=== PATIENT | male | born 1985 | race Caucasian/White ===

== ENCOUNTER 2022-11-13 08:16 | Emergency (ER) | payer OTHER, SELFPAY ==
[2022-11-13 08:28] VITALS: BP 129/73; PULSE 80; RESP 18; TEMP 36; O2SAT 100
--- NOTE | 2022-11-13 08:37 | ED.URI ---
HPI - URI/Sore Throat General Chief Complaint: Upper Respiratory Infection Stated Complaint: Cough/Fever Source: patient and RN notes reviewed History of Present Illness HPI Narrative: 37 yo M presents to urgent care with complaints of cough, fevers, and chills x 2 days. Pt reports some diarrhea and JARA. States his throat is starting to get itchy. Denies any vomiting, ear pain, chest pain, or SOB. Pt has been taking Motrin and Tylenol at home. Related Data Home Medications Medication Instructions Recorded Confirmed fluoxetine 20 mg capsule 20 mg PO DAILY 11/13/22 11/13/22 Allergies Allergy/AdvReac Type Severity Reaction Status Date / Time HYBISCUS Allergy Swelling Uncoded 11/13/22 08:32 Review of Systems Review of Systems: Pertinent positives and pertinent negatives per HPI. PMFSH Comments At the time of my signature, I reviewed and agree with the nursing past medical, surgical, social, and family history. There is no relevant family history pertinent to the patient complaint. Exam Narrative: GENERAL: This is a well-nourished, well-developed patient, in no apparent distress. HEAD: normocephalic, atraumatic. EYES: Sclera clear/white. Vision is grossly intact. EARS: External ears normal, auditory canals clear and without drainage. Hearing grossly intact. NOSE: External nose normal with no obvious nasal discharge, nares without redness, no rhinorrhea. THROAT: Mucous membranes moist, posterior pharynx clear. NECK: Neck supple, non-tender without lymphadenopathy, masses or thyromegaly. CARDIOVASCULAR: Regular rate and rhythm without murmurs, gallops, or rubs. RESPIRATORY: Clear to auscultation. Breath sounds equal bilaterally. No wheezes, rales, or rhonchi. frequently coughing in clinic. SKIN: warm, intact with no suspicious lesions or rash, good texture and turgor. NEURO: awake, alert, and oriented to person, place and time. There were no obvious focal neurologic abnormalities. Course Course Level of Care: Express Care Visit Vital Signs Vital signs: Vital Signs Temperature 96.8 F L 11/13/22 08:28 Pulse Rate 80 11/13/22 08:28 Respiratory Rate 18 11/13/22 08:28 Blood Pressure 129/73 11/13/22 08:28 Pulse Oximetry 100 11/13/22 08:28 Oxygen Delivery Room Air 11/13/22 08:28 Temperature 96.8 F L 11/13/22 08:28 Pulse Rate 80 11/13/22 08:28 Respiratory Rate 18 11/13/22 08:28 Blood Pressure 129/73 11/13/22 08:28 Pulse Oximetry 100 11/13/22 08:28 Oxygen Delivery Room Air 11/13/22 08:28 Reviewed MDM - URI/Sore Throat MDM Narrative Medical decision making narrative: Viral illness may last between 7-21 days; antibiotics do not cure viral illness and are NOT recommended at this time. Also, recommend symptomatic treatment includes: rest, fluids, and increase humidity of the air at home. Recommend Acetaminophen as directed on the bottle to reduce fever, pain, headache. Please schedule a follow-up visit with your personal physician for further evaluation and treatment within 3-5days. If your symptoms persist, change or worsen significantly before you can contact your personal physician then please, without delay, go to the emergency department for further evaluation. Stay hydrated. Differential Diagnosis Differential diagnosis: Likely upper respiratory infection, sinusitis and viral infection Lab Data Attestation: I reviewed the patient's lab results. Critical Care Time Critical Care Time Critical Care Time: No Discharge Plan Discharge Clinical Impression: Viral infection Patient Disposition: Home, Self-Care Condition: Stable Instructions: Viral Syndrome (ED) Additional Instructions: Viral illness may last between 7-21 days; antibiotics do not cure viral illness and are NOT recommended at this time. Also, recommend symptomatic treatment includes: rest, fluids, and increase humidity of the air at home. Recommend Acetaminophen as directed on the bottle
== END 2022-11-13 08:53 | disposition home or self-care (01) ==
PROVIDERS: Emergency Provider Nurse Practitioner Family
DX: B34.9 Viral infection, unspecified (principal); Z79.899 Other long term (current) drug therapy
CPT/HCPCS: 99211; G0463

== ENCOUNTER 2022-12-25 15:38 | Emergency (ER) | payer OTHER, SELFPAY ==
--- NOTE | 2022-12-25 15:55 | ED.LOWEXIN ---
HPI - Extremity Injury (Lower) General Stated Complaint: Vomiting/Headache/Fever Related Data Home Medications Medication Instructions Recorded Confirmed fluoxetine 20 mg capsule 20 mg PO DAILY 11/13/22 11/13/22 Allergies Allergy/AdvReac Type Severity Reaction Status Date / Time HYBISCUS Allergy Swelling Uncoded 11/13/22 08:32 Discharge Plan Discharge Prescriptions: No Action fluoxetine 20 mg capsule 20 mg PO DAILY Follow-up/Referrals: UNKNOWN,DOCTOR [Primary Care Provider] -
[2022-12-25 16:00] VITALS: BP 120/86; PULSE 87; RESP 18; TEMP 37.1; O2SAT 98
--- NOTE | 2022-12-25 16:09 | ED.URI ---
HPI - URI/Sore Throat General Chief Complaint: Upper Respiratory Infection Stated Complaint: Vomiting/Headache/Fever Time Seen by Provider: 12/25/22 16:00 Source: patient Mode of arrival: ambulatory Limitations: no limitations History of Present Illness HPI Narrative: Jaziel is a 37-year-old male patient presenting to the clinic today with complaints of headache, fever, vomiting, cough, congestion, body aches, and chills. He reports his highest fever was 102? F. Symptoms have been going on for 2 days. States his son had strep last week. MD elicited complaint: fever, cough, nasal congestion and other (Body aches, chills, headache) Related Data Home Medications Medication Instructions Recorded Confirmed fluoxetine 20 mg capsule 20 mg PO DAILY 11/13/22 11/13/22 Allergies Allergy/AdvReac Type Severity Reaction Status Date / Time HYBISCUS Allergy Swelling Uncoded 11/13/22 08:32 Review of Systems Review of Systems: Pertinent positives per HPI. Patient denies any fever, chills, rash, headache, visual changes, dizziness, cough, shortness of breath, chest pain, palpitations, nausea, vomiting, diarrhea, constipation, abdominal pain, or any urinary issues. PMFSH Comments At the time of my signature, I reviewed and agree with the nursing past medical, surgical, social, and family history. There is no relevant family history pertinent to the patient complaint. Exam Narrative: General: Well-developed, obese, in no apparent distress Head: Normocephalic, atraumatic Eyes: Pupils equally round and reactive to light bilaterally, EOM intact, sclera and conjunctive clear, no discharge, lids normal Ears: TMs intact and congested, ear canals clear, no drainage, grossly hearing normal. Nose: Nares patent, clear nasal discharge, no inflammation, no sinus tenderness. Mouth: Oral pharynx red without lesions or masses, good dentition, MMM. Neck: Supple, trachea midline, no enlargement of anterior or posterior cervical nodes, no thyroid masses or goiter palpable. Cardio: Regular rate and rhythm, s1 and s2 normal, no murmur appreciated. Resp: Clear to auscultation bilaterally, no rhonchi, rales, wheezing or rubs Course Course Emergency Course: Portions of this record may have been created with voice recognition software. Level of Care: Express Care Visit Vital Signs Vital signs: Vital signs reviewed MDM - URI/Sore Throat MDM Narrative Medical decision making narrative: At the time of visit patient is resting comfortably on exam table. COVID, influenza, and strep test were performed and all testing was negative. We will send strep for culture if this comes back positive we will contact patient put him on antibiotics at that time. Differential Diagnosis Differential diagnosis: Likely upper respiratory infection, otitis media, sinusitis, viral infection, bronchitis, influenza, pharyngitis and other (COVID) Lab Data Labs: Strep Screen Presumptive Negative *(Reference Range: Negative)* Discharge Plan Discharge Clinical Impression: Viral illness URI (upper respiratory infection) Qualifiers: URI type: unspecified URI Qualified Code(s): J06.9 - Acute upper respiratory infection, unspecified Nausea & vomiting Qualifiers: Vomiting type: unspecified Qualified Code(s): R11.2 - Nausea with vomiting, unspecified Patient Disposition: Home, Self-Care Condition: Stable Instructions: Antibiotic Form, Upper Respiratory Infection (ED), Acute Nausea and Vomiting (ED), Viral Syndrome (ED), Postnasal Drip (DC) Additional Instructions: COVID, influenza, and strep test were all negative in the clinic today. We will send strep for culture if this comes back positive we will contact him place you on antibiotics at that time. Take medications as prescribed-Zofran for nausea May take DayQuil/NyQuil for cold/flu symptoms Increase fluids and stay well hydrat
== END 2022-12-25 16:20 | disposition home or self-care (01) ==
PROVIDERS: Emergency Provider Nurse Practitioner Family
DX: J06.9 Acute upper respiratory infection, unspecified (principal); R11.2 Nausea with vomiting, unspecified; B34.9 Viral infection, unspecified; Z20.822 Contact with and (suspected) exposure to COVID-19
CPT/HCPCS: 87081; 87426; 87804; 87880; 99213; C9803; G0463

== ENCOUNTER 2023-05-07 13:05 | Emergency (ER) | payer MEDICAID, SELFPAY ==
[2023-05-07 13:10] VITALS: BP 132/75; PULSE 71; RESP 16; TEMP 37.1; O2SAT 98
--- NOTE | 2023-05-07 13:32 | ED.GENADULT ---
HPI - General Adult General Chief complaint: Urogenital-Male Stated complaint: Urinary tract pain Source: patient, RN notes reviewed and old records reviewed Mode of arrival: ambulatory Limitations: no limitations History of Present Illness HPI narrative: 37-year-old male presents to [facility] with complaints urethra pain this started 3 days ago. patient states pain is constant and not related to urination. Patient does state he has been having some urinary urgency for 1 day. Patient denies concerns for STDs. Patient denies penile lesions, sores, discharge Related Data Home Medications Medication Instructions Recorded Confirmed fluoxetine 20 mg capsule 20 mg PO DAILY 12/25/22 05/07/23 Allergies Allergy/AdvReac Type Severity Reaction Status Date / Time HYBISCUS Allergy Swelling Uncoded 12/25/22 17:19 Review of Systems Constitutional: Constitutional: Reports no additional constitutional complaints, Denies body ache(s), Denies chills, Denies fatigue, Denies fever(s) and Denies headache(s) Eyes: Eyes: Reports no additional eye complaints and Denies blurry vision ENT: Reports system reviewed and no additional complaints, except as documented, Denies vertigo, Denies dizziness, Denies ear discharge, Denies otalgia, Denies facial pain, Denies headache(s), Denies nasal congestion, Denies nasal discharge, Denies sinus pain, Denies sinus pressure and Denies sore throat Cardiovascular: Cardiovascular: Reports no additional cardiovascular complaints, Denies chest pain, Denies chest pain at rest, Denies rapid heart rate and Denies dyspnea Respiratory: Respiratory: Reports no additional respiratory complaints, Denies chest congestion, Denies cough, Denies pain on inspiration, Denies pain with cough and Denies dyspnea Gastrointestinal: Gastrointestinal: Denies abdominal pain, Denies diarrhea, Denies nausea and Denies vomiting Genitourinary: Genitourinary: Denies hematuria, Denies erectile dysfunction, Denies genital lesions, Denies genital pain, Denies dysuria, Denies flank pain, Denies nocturia, Denies painful ejaculations, Denies penile discharge, Denies scrotal swelling, Denies testicular mass, Denies testicular pain, Denies urinary frequency, Denies urinary hesitancy and Reports urinary urgency Comments: urethral pain Integumentary/Breasts: Skin/Breast: Denies rash Neurologic: Reports system reviewed and no additional complaints, except as documented, Denies vertigo, Denies dizziness and Denies headache(s) Endocrine: Endocrine: Denies fatigue PMFSH Comments At the time of my signature, I reviewed and agree with the nursing past medical, surgical, social, and family history. There is no relevant family history pertinent to the patient complaint. Exam Const: General: cooperative, healthy appearing, no acute distress and well nourished Nutritional Appearance: well nourished Orientation/consciousness: patient oriented x3 Limitations: no limitations HENMT: Head: normal to inspection and normocephalic Ears: external ears normal, TM's normal bilaterally, mastoids normal and Abnormal EAC present Face/Nose/Sinus: normal facial exam Face and sinus: normal facial exam Mouth: Yes Normal oral and palatal mucosa present, Yes oropharynx normal and Yes moist mucous membranes Throat: tonsils normal, uvula midline and no uvular edema Eyes: General: appearance normal, both eyes and all related structures Sclera: sclerae normal Pupils: Equal, round and reactive pupils present Resp: Effort & Inspection: normal respiratory effort, able to speak in complete sentences, no audible wheezes, no cough, no respiratory distress and no retractions Auscultation: clear to auscultation bilaterally, no crackles, no rales, no rhonchi and no wheezes Cardio: Rate: regular rate Rhythm: regular rhythm Skin: General skin exam: normal color and no rashes or lesions noted Neuro: General: patient oriented x3 Cranial nerves: Yes Equal, round and
== END 2023-05-07 13:40 | disposition home or self-care (01) ==
PROVIDERS: Emergency Provider Registered Nurse
DX: N34.2 Other urethritis (principal); Z79.899 Other long term (current) drug therapy
CPT/HCPCS: 81003; 87086; 99213; G0463

== ENCOUNTER 2023-08-10 15:08 | Emergency (ER) | payer OTHER, SELFPAY ==
[2023-08-10 15:24] VITALS: BP 129/83; PULSE 99; RESP 16; TEMP 36.8; O2SAT 99
--- NOTE | 2023-08-10 16:09 | ED.DENTAL ---
HPI - Dental/Oral General Chief complaint: Dental/Oral Stated complaint: tooth pain Time Seen by Provider: 08/10/23 16:09 Source: patient, RN notes reviewed and old records reviewed Mode of arrival: ambulatory Limitations: no limitations History of Present Illness HPI Narrative: 37-year-old male to [facility] for left foot lower dental and left jaw pain for 3 days. Patient believes that his wisdom tooth is causing the pain. Patient does not have a dentist. Patient reports treating with ibuprofen at home and endorses pain 3 out 10. Patient denies fever, ear pain, cough, sore throat, difficulty swallowing. patient able to tolerate fluids by mouth. Patient able to speak in full sentences without difficulty. Patient in no acute distress. Related Data Allergies Allergy/AdvReac Type Severity Reaction Status Date / Time HYBISCUS Allergy Swelling Uncoded 12/25/22 17:19 Review of Systems Review of Systems: All systems reviewed & are unremarkable except as noted in HPI and below Constitutional: Constitutional: Reports no additional constitutional complaints Eyes: Eyes: Reports no additional eye complaints ENT: Reports as per HPI, Reports dental pain ( left molar) and Reports facial pain ( Left jaw) Cardiovascular: Cardiovascular: Reports no additional cardiovascular complaints, Denies chest pain and Denies dyspnea Respiratory: Respiratory: Reports no additional respiratory complaints, Denies cough and Denies dyspnea Musculoskeletal: Musculoskeletal: Reports no additional musculoskeletal complaints Neurologic: Reports system reviewed and no additional complaints, except as documented Psychiatric: Psychiatric: Reports no additional psychiatric complaints PMFSH Comments At the time of my signature, I reviewed and agree with the nursing past medical, surgical, social, and family history. There is no relevant family history pertinent to the patient complaint. Exam Const: General: cooperative, no acute distress, alert, tired appearing, uncomfortable and well nourished Nutritional Appearance: well nourished Orientation/consciousness: patient oriented x3 Limitations: no limitations HENMT: Head: normal to inspection Ears: external ears normal Face/Nose/Sinus: Normal external nose present, Normal nares present, normal facial exam, No erythema and No edema Face and sinus: no erythema and edema on the left mandible and angle of jaw Teeth and gingiva: abnormal tooth and associated gingiva, caries, gingiva abnormal edematous, diffusely erythematous and tender; without any purulent discharge and poor dentition Throat: posterior oropharynx normal Eyes: General: appearance normal, both eyes and all related structures Neck: Neck: normal visual inspection, full ROM and no meningeal signs Lymphatic: no lymphadenopathy noted and no lymphedema noted Chest: Chest palpation & inspection: normal inspection of the chest Resp: Effort & Inspection: normal respiratory effort and able to speak in complete sentences Auscultation: clear to auscultation bilaterally Cardio: Jugular venous distension: no JVD Rate: regular rate Rhythm: regular rhythm Back/Spine/Pelvis: Cervical Spine: cervical ROM normal Skin: General skin exam: normal color, no rashes or lesions noted and turgor normal Neuro: General: patient oriented x3, gait normal, moves all extremities and no meningeal signs Speech: normal speech Gait exam (Neuro): Normal gait present Extrem: General: normal to inspection, full ROM and capillary refill normal Psych: Appearance: grossly normal and well kempt Course Course Emergency Course: Some parts of this dictation were generated by voice recognition software and may contain typographical and/or grammatical inaccuracies. Level of Care: Express Care Visit Vital Signs Vital signs: Vital Signs Temperature 36.8 C 08/10/23 15:24 Pulse Rate 99 08/10/23 15:24 Respiratory Rate 16 08/10/23 15:24 Blood Pressure 129/8
== END 2023-08-10 16:41 | disposition home or self-care (01) ==
PROVIDERS: Emergency Provider Nurse Practitioner Family; PCP Nurse Practitioner
DX: K04.7 Periapical abscess without sinus (principal)
CPT/HCPCS: 99213; G0463

== ENCOUNTER 2024-01-29 14:00 | Emergency (ER) | payer OTHER, SELFPAY ==
[2024-01-29 14:05] VITALS: BP 125/67; PULSE 101; RESP 18; TEMP 37.1; O2SAT 99
--- NOTE | 2024-01-29 14:10 | ED.URI ---
HPI - URI/Sore Throat General Chief Complaint: Upper Respiratory Infection Stated Complaint: poss bronchitis Time Seen by Provider: 01/29/24 14:12 Source: patient and RN notes reviewed Mode of arrival: ambulatory Limitations: no limitations History of Present Illness HPI Narrative: 38-year-old male presents with concern for 2 week history of cough, chest congestion. Reports have low-grade fevers the last 3 days. He reports shortness of breath worsens when he lies down or coughs. He reports he is using a friend's inhaler MD elicited complaint: cough Related Data Allergies Allergy/AdvReac Type Severity Reaction Status Date / Time HYBISCUS Allergy Swelling Uncoded 12/25/22 17:19 Review of Systems Review of Systems: CONSTITUTIONAL: Reports malaise, sweats, fever. EYES: Denies visual changes, redness, or discharge. ENT: Denies rhinorrhea, congestion, sinus pain, otalgia and sore throat. CARDIOVASCULAR: Denies chest pain, palpitations, or edema. RESPIRATORY: Reports cough, positional dyspnea. GASTROINTESTINAL: Denies abdominal pain, nausea, vomiting, diarrhea SKIN: Denies rash or itching. MUSCULOSKELETAL: Denies myalgia. NEUROLOGIC: Denies headache. All systems reviewed & are unremarkable except as noted in HPI and below PMFSH Comments At time of signature, agree with nursing past medical, surgical, social and family history. There is no relevant family history pertinent to the presenting complaint Exam Narrative: GENERAL: Nontoxic-appearing, well-nourished, and in no acute distress. HEAD: Normocephalic EYES: PERRLA, conjunctivae clear ENT: Nares clear. Mucous membranes moist. TM pearly goncalves with dull light reflex bilaterally; no tragal tenderness. Oropharynx not erythematous without lesions. Tonsils not enlarged and without exudate, no drooling, no hoarseness, no trismus, uvula midline. NECK: Supple. No lymphadenopathy CHEST: Clear to auscultation, breath sounds equal. No wheezing, rhonchi, rales, or stridor. No respiratory distress, speaks in full sentences. Harsh Cough noted HEART: Regular rate and rhythm. No murmur heard. SKIN: Warm, clammy, no rash. NEURO: Alert and oriented x3. PSYCH: Normal mood and affect Course Course Emergency Course: Patient is aware of diagnosis, understands and agrees to treatment plan. Anticipatory guidance given. Patient agrees to follow-up as directed and is aware of reasons to seek care at the emergency department. Portions of this record may have been created with voice recognition software Level of Care: Express Care Visit Vital Signs Vital signs: Vital Signs Temperature 98.8 F 01/29/24 14:05 Pulse Rate 101 H 01/29/24 14:05 Respiratory Rate 18 01/29/24 14:05 Blood Pressure 125/67 01/29/24 14:05 Pulse Oximetry 99 01/29/24 14:05 Oxygen Delivery Room Air 01/29/24 14:05 Temperature 98.8 F 01/29/24 14:05 Pulse Rate 101 H 01/29/24 14:05 Respiratory Rate 18 01/29/24 14:05 Blood Pressure 125/67 01/29/24 14:05 Pulse Oximetry 99 01/29/24 14:05 Oxygen Delivery Room Air 01/29/24 14:05 Reviewed. MDM - URI/Sore Throat MDM Narrative Medical decision making narrative: Differential diagnosis considered: Pickett virus, strep pharyngitis, allergic rhinitis, upper respiratory tract infection, sinusitis, rhinosinusitis, nasopharyngitis. viral pharyngitis, otitis media, otitis externa, pneumonia, bronchitis, viral cough syndrome, viral syndrome, and influenza. Exam findings show no acute concerns or changes; patient is non-toxic appearing and is in no distress. Patient is appropriate for outpatient treatment and follow-up. Lab Data Attestation: I reviewed the patient's lab results. Critical Care Time Critical Care Time Critical Care Time: No Discharge Plan Discharge Clinical Impression: Lower respiratory tract infection Patient Disposition: Home, Self-Care Condition: Stable Instructions: Antibiotic Form, Acute Cough (ED) Additional Instructions: Take medication as prescribed Recommend antihistamine such as Benadryl at night time and Zyrtec or Lissy during the day Use inhaler as needed for cough, wheezing, shortness of breath or chest tightness. Also, recommend symptomatic treatment includes: rest, fluids, and increase humidity of the air at home. Recommend Acetaminophen as directed on the bottle to reduce fever, pain, headache. Avoid smoking/second-hand smoke. Please schedule a follow-up visit with your personal physician for further evaluation and treatment within 3-5days. If your symptoms persist, change or worsen significantly before you can contact your personal physician then please, without delay, go to the emergency department for further evaluation. Prescriptions: New azithromycin [Zithromax Z-Blair] 250 mg tablet See Rx Instructions .ROUTE .COMPLEX Qty: 6 0RF Rx Instructions: take 500 mg today (day 1), then 250 mg for 4 days (days 2-5) methylprednisolone [Medrol (Blair)] 4 mg tablets,dose pack See Rx Instructions .ROUTE .COMPLEX Qty: 21 0RF Rx Instructions: orally per package directions albuterol sulfate 90 mcg/actuation HFA aerosol inhaler 2 puff INHALATION QID PRN (Reason: shortness of breath or wheezing) Qty: 8.5 0RF Follow-up/Referrals: Deib,CRYSTAL Santos [Primary Care Provider] - Time of Disposition: 14:17
== END 2024-01-29 14:27 | disposition home or self-care (01) ==
PROVIDERS: Emergency Provider Nurse Practitioner; PCP Nurse Practitioner Family
DX: J22 Unspecified acute lower respiratory infection (principal)
CPT/HCPCS: 99213; G0463